=== PATIENT | male | born 1960 ===

== ENCOUNTER → 2018-08-27 | Outpatient (CLI) | payer OTHER ==
--- NOTE | 2018-08-27 15:48 | PCVCIMAG ---
EXAM: BILATERAL LOWER EXTREMITY ARTERIAL DUPLEX INDICATION: Peripheral Arterial Disease. Leg pain. Nonhealing ulcer right lower leg posteriorly. FINDINGS: Right Leg: Common femoral and profunda femoral arteries are patent. Superficial femoral artery and popliteal artery are patent. The peroneal and posterior tibial arteries are patent. Segmental occlusion mid anterior tibial artery. Left Leg: Common femoral and profunda femoral arteries are patent. Superficial femoral artery and popliteal artery are patent. The peroneal and posterior tibial arteries are patent. Segmental occlusion mid anterior tibial artery. IMPRESSION: Segmental occlusion right anterior tibial artery. Otherwise no flow limiting stenosis in the right lower extremity. Segmental occlusion left anterior tibial artery. Otherwise no flow limiting stenosis in the left lower extremity. LOC:OFFICE
== END | disposition home or self-care (01) ==
LOC: PCVCIMAG 13:59
PROVIDERS: ATTEND Emergency Medicine Emergency Medical Services
DX: I77.1 Stricture of artery (principal); I73.9 Peripheral vascular disease, unspecified
CPT/HCPCS: 93925